=== PATIENT | female | born 1970 | race Hispanic/Latino ===

== ENCOUNTER → 2021-08-30 | Outpatient (CLI) | payer OTHER, MEDICAID | END | disposition home or self-care (01) | LOC: RAH 13:16 | PROVIDERS: ATTEND Internal Medicine Cardiovascular Disease | DX: R00.2 Palpitations (principal); R00.0 Tachycardia, unspecified | CPT/HCPCS: 93306 ==

== ENCOUNTER → 2022-05-10 | Outpatient (CLI) | payer OTHER, MEDICAID ==
[~2022-05-10] VITALS: Ht 154.9 cm; Wt 86.6 kg
[~2022-05-10] MED LIST: 0.9%NACL 1000ML 1,000 ML IV SCH
[2022-05-10 10:44] LABS: BASOPHILS % (AUTO) 0.8 % (0.0-5.0); EOSINOPHILS % (AUTO) 1.2 % (0.0-8.0); HEMATOCRIT 40.8 % (36-48); LYMPHOCYTES % (AUTO) 34.9 % (21.0-51.0); MEAN CORPUSCULAR HEMOGLOBIN 25.7 pg (27.0-33.0); MEAN CORPUSCULAR HGB CONC 32.4 g/dL (32.0-36.0); MEAN CORPUSCULAR VOLUME 79.4 fL (79-99); MONOCYTES % (AUTO) 6.5 % (3.0-13.0); NEUTROPHILS % (AUTO) 56.1 % (40.0-77.0); PLATELET COUNT (AUTO) 265 K/uL (130-400); RED BLOOD CELL COUNT(AUTO) 5.14 MIL/uL (4.00-5.50); RED CELL DISTRIBUTION WIDTH 14.9 % (11.0-15.5); WHITE BLOOD COUNT (AUTO) 6.5 K/uL (4.8-10.8)
[2022-05-10 10:53] LABS: CREATININE 0.9 mg/dL (0.5-1.5); POTASSIUM 4.3 mmol/L (3.5-5.1)
[2022-05-10 11:00] LABS: INR 0.93 (0.85-1.15); PROTHROMBIN TIME 10.2 SEC (9.6-11.6)
[2022-05-10 11:01] LABS: PARTIAL THROMBOPLASTIN TIME 28.3 SEC (26.3-35.5)
[2022-05-11 09:41] VITALS: BP 128/69
== END | disposition home or self-care (01) ==
LOC: DAH 10:00 → EDSTATUS 10:00
PROVIDERS: ATTEND Internal Medicine Cardiovascular Disease
DX: Z01.810 Encounter for preprocedural cardiovascular examination (principal); I47.1 Supraventricular tachycardia; Z79.01 Long term (current) use of anticoagulants
CPT/HCPCS: 36415; 71045; 80048; 84703; 85025; 85610; 85730; 93005

== ENCOUNTER 2022-06-05 05:48 | Inpatient (IN) | payer OTHER, MEDICAID ==
[2022-06-01 11:17] LABS: BASOPHILS % (AUTO) 0.9 % (0.0-5.0); EOSINOPHILS % (AUTO) 0.9 % (0.0-8.0); HEMATOCRIT 40.7 % (36-48); LYMPHOCYTES % (AUTO) 32.7 % (21.0-51.0); MEAN CORPUSCULAR HEMOGLOBIN 25.8 pg (27.0-33.0); MEAN CORPUSCULAR HGB CONC 32.7 g/dL (32.0-36.0); MONOCYTES % (AUTO) 4.2 % (3.0-13.0); NEUTROPHILS % (AUTO) 61.1 % (40.0-77.0); PLATELET COUNT (AUTO) 232 K/uL (130-400); RED BLOOD CELL COUNT(AUTO) 5.15 MIL/uL (4.00-5.50); RED CELL DISTRIBUTION WIDTH 14.7 % (11.0-15.5); WHITE BLOOD COUNT (AUTO) 5.7 K/uL (4.8-10.8)
[2022-06-01 11:26] LABS: CREATININE 0.7 mg/dL (0.5-1.5); POTASSIUM 3.7 mmol/L (3.5-5.1)
[2022-06-01 11:29] LABS: INR 0.95 (0.85-1.15); PROTHROMBIN TIME 10.4 SEC (9.6-11.6)
[2022-06-01 11:30] LABS: PARTIAL THROMBOPLASTIN TIME 29.1 SEC (26.3-35.5)
[2022-06-04 09:58] VITALS: BP 146/82
[~2022-06-05] VITALS: Ht 157.5 cm; Wt 88.5 kg
[2022-06-05] VITALS (24 sets, daily range): BP systolic 78–145; BP diastolic 47–83
[~2022-06-05 05:48] MED LIST changes: -0.9%NACL 1000ML 1,000 ML IV SCH; +ATOR10TA69 PO; +LOSA50TA64 PO; +PIND5 PO
[2022-06-05] MEDS ORDERED: LIDOCAINE HCL 1% MDV 50ML VIAL ONE (07:41)
[2022-06-05] MEDS ORDERED: MEPERIDINE-PF 25 MG/ML SYG ONE (07:41)
[2022-06-05] MEDS ORDERED: MIDAZOLAM HCL 1 MG/ML 2ML VIAL ONE ×3 (07:41→09:05)
[2022-06-05] MEDS ORDERED: HEPARIN 10,000 UNIT/10ML (1,000 UNIT/ML) VIAL ONE (07:54)
[2022-06-05] MEDS ORDERED: ISOPROTERENOL HCL 0.2 MG/ML AMP/VIAL/BAG ONE (07:58)
[2022-06-05] MEDS ORDERED: MEPERIDINE-PF 50 MG/ML SYG ONE (08:37)
[2022-06-05] MEDS ORDERED: ADENOSINE 90MG VIAL IV ONE (09:01)
[2022-06-05] MEDS ORDERED: ACETAMINOPHEN WITH CODEINE 1 TAB TAB PO PRN (11:00)
[2022-06-05] MEDS ORDERED: ACETAMINOPHEN 325 MG TAB PO PRN ×3 (11:00→14:00)
[2022-06-05 13:43] LABS: BASOPHILS % (AUTO) 0.4 % (0.0-5.0); EOSINOPHILS % (AUTO) 0.3 % (0.0-8.0); HEMATOCRIT 33.4 % (36-48); LYMPHOCYTES % (AUTO) 14.7 % (21.0-51.0); MEAN CORPUSCULAR HEMOGLOBIN 25.8 pg (27.0-33.0); MEAN CORPUSCULAR HGB CONC 32.9 g/dL (32.0-36.0); MEAN CORPUSCULAR VOLUME 78.2 fL (79-99); NEUTROPHILS % (AUTO) 79.2 % (40.0-77.0); PLATELET COUNT (AUTO) 245 K/uL (130-400); RED BLOOD CELL COUNT(AUTO) 4.27 MIL/uL (4.00-5.50); WHITE BLOOD COUNT (AUTO) 10.9 K/uL (4.8-10.8)
[2022-06-05] MEDS ORDERED: DiphenhydrAMINE HCL 50 MG/ML VIAL IV PRN (14:00)
[2022-06-05] MEDS ORDERED: GUAIFENESIN-DM 200/20 MG 10 ML PO PRN (14:00)
[2022-06-05] MEDS ORDERED: POTASSIUM CHLORIDE 10% ELIXIR 20 MEQ/15 ML UDCUP PO PRN (14:00)
[2022-06-05] MEDS ORDERED: LIDOCAINE HCL-MPF 1% 2ML VIAL IV PRN (14:00)
[2022-06-05] MEDS ORDERED: POTASSIUM CHLORIDE 20MEQ/100ML 100 ML IV PRN (14:00)
[2022-06-05] MEDS ORDERED: NITROGLYCERIN 0.4 MG SL TAB SL PRN (14:00)
[2022-06-05] MEDS ORDERED: HYDROCODONE/ACETAMINOPHEN 5/325 MG TAB PO PRN ×2 (14:00)
[2022-06-05] MEDS ORDERED: HYDROMORPHONE 1 MG INJ IV PRN (14:00)
[2022-06-05] MEDS ORDERED: MAG/ALUM/SIMETH 30 ML UDCUP PO PRN (14:00)
[2022-06-05] MEDS ORDERED: MAGNESIUM 2GM PREMIX 50ML 50 ML IV PRN (14:00)
[2022-06-05] MEDS: 0.9%NACL 1000ML 1,000 ML IV SCH (14:00)
[2022-06-05] MEDS ORDERED: LACTULOSE 20 GM/30 ML UDCUP PO PRN (14:00)
[2022-06-05] MEDS ORDERED: DIPHENHYDRAMINE HCL 25 MG CAPSULE PO PRN (14:00)
[2022-06-05] MEDS ORDERED: ONDANSETRON 4MG INJ IV PRN (14:00)
[2022-06-05] MEDS ORDERED: KETOROLAC 15MG/ML VIAL (15MG/ML) IV ONE (14:30)
[2022-06-05 18:47] LABS: BASOPHILS % (AUTO) 0.5 % (0.0-5.0); EOSINOPHILS % (AUTO) 0.1 % (0.0-8.0); HEMATOCRIT 32.7 % (36-48); LYMPHOCYTES % (AUTO) 22.1 % (21.0-51.0); MEAN CORPUSCULAR HEMOGLOBIN 25.7 pg (27.0-33.0); MEAN CORPUSCULAR HGB CONC 32.1 g/dL (32.0-36.0); MONOCYTES % (AUTO) 4.9 % (3.0-13.0); NEUTROPHILS % (AUTO) 72.2 % (40.0-77.0); PLATELET COUNT (AUTO) 232 K/uL (130-400); RED BLOOD CELL COUNT(AUTO) 4.09 MIL/uL (4.00-5.50); WHITE BLOOD COUNT (AUTO) 9.9 K/uL (4.8-10.8)
[2022-06-05] MEDS: ATORVASTATIN 10 MG TABLET PO SCH (20:33)
[2022-06-05] MEDS: FAMOTIDINE 20MG TAB PO SCH (20:34)
[2022-06-05] MEDS: KETOROLAC 15MG/ML VIAL (15MG/ML) IV PRN (20:34)
[2022-06-05] MEDS: FAMOTIDINE 20MG VIAL IV SCH (20:35)
[2022-06-05 22:50] LABS: HEMATOCRIT 28.5 % (36-48)
[2022-06-06 00:01] VITALS: BP 110/57
[2022-06-06 04:00] VITALS: BP 110/66
[2022-06-06 04:02] LABS: BASOPHILS % (AUTO) 0.6 % (0.0-5.0); EOSINOPHILS % (AUTO) 0.6 % (0.0-8.0); HEMATOCRIT 28.6 % (36-48); LYMPHOCYTES % (AUTO) 37.3 % (21.0-51.0); MEAN CORPUSCULAR HEMOGLOBIN 26.1 pg (27.0-33.0); MEAN CORPUSCULAR HGB CONC 32.5 g/dL (32.0-36.0); MEAN CORPUSCULAR VOLUME 80.3 fL (79-99); MONOCYTES % (AUTO) 6.3 % (3.0-13.0); NEUTROPHILS % (AUTO) 54.9 % (40.0-77.0); PLATELET COUNT (AUTO) 199 K/uL (130-400); RED BLOOD CELL COUNT(AUTO) 3.56 MIL/uL (4.00-5.50); RED CELL DISTRIBUTION WIDTH 15.1 % (11.0-15.5)
[2022-06-06 04:15] LABS: CREATININE 0.8 mg/dL (0.5-1.5); MAGNESIUM 2.2 mg/dL (1.80-2.40); PHOSPHORUS 4.6 mg/dL (2.5-4.9); POTASSIUM 3.6 mmol/L (3.5-5.1)
[2022-06-06] MEDS: 0.9%NACL 1000ML 1,000 ML IV SCH ×3 (05:08→20:48)
[2022-06-06] MEDS: KCL 20 MEQ ERTAB PO PRN ×2 (05:08→14:27)
[2022-06-06] MEDS: FAMOTIDINE 20MG TAB PO SCH ×2 (08:39→20:21)
[2022-06-06] MEDS: KETOROLAC 15MG/ML VIAL (15MG/ML) IV PRN ×2 (08:42→20:22)
[2022-06-06] MEDS: FAMOTIDINE 20MG VIAL IV SCH ×2 (08:45→20:22)
[2022-06-06] MEDS: PINDOLOL 5 MG TAB PO SCH ×2 (09:48→20:21)
[2022-06-06 12:00] VITALS: BP 118/55
[2022-06-06 13:30] LABS: BASOPHILS % (AUTO) 0.5 % (0.0-5.0); EOSINOPHILS % (AUTO) 0.6 % (0.0-8.0); LYMPHOCYTES % (AUTO) 36.9 % (21.0-51.0); MEAN CORPUSCULAR HGB CONC 32.1 g/dL (32.0-36.0); MONOCYTES % (AUTO) 5.4 % (3.0-13.0); NEUTROPHILS % (AUTO) 56.3 % (40.0-77.0); PLATELET COUNT (AUTO) 183 K/uL (130-400); RED BLOOD CELL COUNT(AUTO) 3.58 MIL/uL (4.00-5.50); RED CELL DISTRIBUTION WIDTH 14.9 % (11.0-15.5); WHITE BLOOD COUNT (AUTO) 6.5 K/uL (4.8-10.8)
[2022-06-06 16:00] VITALS: BP 104/59
[2022-06-06] MEDS: ATORVASTATIN 10 MG TABLET PO SCH (20:21)
[2022-06-06 20:25] VITALS: BP 140/66
[2022-06-06 23:54] VITALS: BP 120/63
[2022-06-07 03:35] LABS: BASOPHILS % (AUTO) 0.6 % (0.0-5.0); EOSINOPHILS % (AUTO) 1.1 % (0.0-8.0); HEMATOCRIT 27.4 % (36-48); LYMPHOCYTES % (AUTO) 41.2 % (21.0-51.0); MEAN CORPUSCULAR HEMOGLOBIN 25.8 pg (27.0-33.0); MEAN CORPUSCULAR HGB CONC 32.5 g/dL (32.0-36.0); MEAN CORPUSCULAR VOLUME 79.4 fL (79-99); MONOCYTES % (AUTO) 6.7 % (3.0-13.0); NEUTROPHILS % (AUTO) 50.1 % (40.0-77.0); PLATELET COUNT (AUTO) 185 K/uL (130-400); RED BLOOD CELL COUNT(AUTO) 3.45 MIL/uL (4.00-5.50); RED CELL DISTRIBUTION WIDTH 15.1 % (11.0-15.5); WHITE BLOOD COUNT (AUTO) 6.4 K/uL (4.8-10.8)
[2022-06-07 03:39] LABS: CREATININE 0.8 mg/dL (0.5-1.5); POTASSIUM 3.6 mmol/L (3.5-5.1)
[2022-06-07] MEDS: 0.9%NACL 1000ML 1,000 ML IV SCH ×3 (04:30→19:54)
[2022-06-07] MEDS: KCL 20 MEQ ERTAB PO PRN ×2 (04:49→17:43)
[2022-06-07] MEDS: KETOROLAC 15MG/ML VIAL (15MG/ML) IV PRN ×2 (04:49→20:39)
[2022-06-07 04:58] VITALS: BP 133/65
[2022-06-07 08:08] VITALS: BP 138/68
[2022-06-07] MEDS: FAMOTIDINE 20MG VIAL IV SCH ×2 (09:00→20:22)
[2022-06-07] MEDS: FAMOTIDINE 20MG TAB PO SCH ×2 (09:15→20:20)
[2022-06-07] MEDS: PINDOLOL 5 MG TAB PO SCH ×2 (09:15→20:21)
[2022-06-07] MEDS ORDERED: IOHEXOL-350 50ML VIAL IV ONE (10:53)
[2022-06-07 12:29] VITALS: BP 137/90
[2022-06-07 16:51] VITALS: BP 117/65
[2022-06-07 20:09] VITALS: BP 123/71
[2022-06-07] MEDS: ATORVASTATIN 10 MG TABLET PO SCH (20:20)
[2022-06-08] VITALS (7 sets, daily range): BP systolic 105–127; BP diastolic 60–71
[2022-06-08] MEDS: 0.9%NACL 1000ML 1,000 ML IV SCH ×3 (03:33→19:00)
[2022-06-08 03:57] LABS: BASOPHILS % (AUTO) 0.6 % (0.0-5.0); EOSINOPHILS % (AUTO) 1.8 % (0.0-8.0); HEMATOCRIT 29.7 % (36-48); LYMPHOCYTES % (AUTO) 39.1 % (21.0-51.0); MEAN CORPUSCULAR HEMOGLOBIN 25.3 pg (27.0-33.0); MONOCYTES % (AUTO) 7.2 % (3.0-13.0); PLATELET COUNT (AUTO) 199 K/uL (130-400); RED BLOOD CELL COUNT(AUTO) 3.76 MIL/uL (4.00-5.50); RED CELL DISTRIBUTION WIDTH 15.2 % (11.0-15.5); WHITE BLOOD COUNT (AUTO) 7.2 K/uL (4.8-10.8)
[2022-06-08 04:08] LABS: CREATININE 0.8 mg/dL (0.5-1.5)
[2022-06-08] MEDS: FAMOTIDINE 20MG VIAL IV SCH ×2 (09:00→21:00)
[2022-06-08] MEDS: PINDOLOL 5 MG TAB PO SCH ×2 (10:04→21:03)
[2022-06-08] MEDS: FAMOTIDINE 20MG TAB PO SCH ×2 (10:04→21:03)
[2022-06-08] MEDS: KETOROLAC 15MG/ML VIAL (15MG/ML) IV PRN ×2 (10:05→21:03)
[2022-06-08] MEDS ORDERED: LORAZEPAM 2 MG/ML 1 ML VIAL IM ONE (14:00)
[2022-06-08] MEDS: ATORVASTATIN 10 MG TABLET PO SCH (21:03)
[2022-06-09] MEDS: 0.9%NACL 1000ML 1,000 ML IV SCH ×2 (02:42→10:24)
[2022-06-09 03:58] VITALS: BP 115/59
[2022-06-09 07:15] VITALS: BP_SYST 115; BP_SYST 136; BP_DIAS 51; BP_DIAS 69
[2022-06-09] MEDS: KETOROLAC 15MG/ML VIAL (15MG/ML) IV PRN (08:17)
[2022-06-09] MEDS: FAMOTIDINE 20MG TAB PO SCH (08:17)
[2022-06-09] MEDS: FAMOTIDINE 20MG VIAL IV SCH (09:00)
[2022-06-09] MEDS: PINDOLOL 5 MG TAB PO SCH (10:36)
[2022-06-09 11:09] VITALS: BP 106/68
[2022-06-09] MEDS ORDERED: HYDR-4060 PO (14:50)
[2022-06-09 16:15] VITALS: BP 122/78
== END 2022-06-09 17:30 | disposition home or self-care (01) | DRG 919 ==
LOC: DAH 05:48 → INTOOBSV 05:49 → DAH 05:49 → OBSVTOIN 05:49 → DAHIP 05:49 → 2AH 16:59
PROVIDERS: ADMIT Internal Medicine; ATTEND Internal Medicine
DX: K91.841 Postprocedural hemorrhage of a digestive system organ or structure following other procedure (principal); K66.1 Hemoperitoneum; R57.8 Other shock; I47.1 Supraventricular tachycardia; K56.7 Ileus, unspecified; I47.20 Ventricular tachycardia, unspecified; D64.9 Anemia, unspecified; G90.A Postural orthostatic tachycardia syndrome [POTS]; H93.13 Tinnitus, bilateral; I10 Essential (primary) hypertension; Y84.0 Cardiac catheterization as the cause of abnormal reaction of the patient, or of later complication, without mention of misadventure at the time of the procedure; F17.200 Nicotine dependence, unspecified, uncomplicated; Y71.3 Surgical instruments, materials and cardiovascular devices (including sutures) associated with adverse incidents; Z79.899 Other long term (current) drug therapy; Z90.710 Acquired absence of both cervix and uterus
CPT/HCPCS: 36415; 70551; 72192; 72193; 76705; 80048; 83735; 84100; 85014; 85018; 85025; 85610; 85730; 86850; 86870; 86900; 86901; 86922; 93005; 93620; 93621; 93623; 96360; 96361; 99156; 99157; A4606; C1730; C1894; G0378; J0153; J1644; J1885; J2175; J2250; J2405; J3490; J7030; Q9967

== ENCOUNTER 2022-06-20 14:44 | Observation (INO) | payer OTHER, MEDICAID ==
[~2022-06-20] VITALS: Ht 154.9 cm; Wt 87.6 kg
[~2022-06-20 14:44] MED LIST changes: +HYDR-4060 PO
[2022-06-20 15:47] LABS: BASOPHILS % (AUTO) 0.7 % (0.0-5.0); EOSINOPHILS % (AUTO) 0.9 % (0.0-8.0); HEMATOCRIT 33.6 % (36-48); LYMPHOCYTES % (AUTO) 24.6 % (21.0-51.0); MEAN CORPUSCULAR HEMOGLOBIN 25.5 pg (27.0-33.0); MEAN CORPUSCULAR HGB CONC 32.1 g/dL (32.0-36.0); MEAN CORPUSCULAR VOLUME 79.4 fL (79-99); MONOCYTES % (AUTO) 6.7 % (3.0-13.0); PLATELET COUNT (AUTO) 398 K/uL (130-400); RED BLOOD CELL COUNT(AUTO) 4.23 MIL/uL (4.00-5.50); RED CELL DISTRIBUTION WIDTH 15.3 % (11.0-15.5)
[2022-06-20 15:56] LABS: CREATININE 0.9 mg/dL (0.5-1.5); POTASSIUM 3.2 mmol/L (3.5-5.1)
[2022-06-20 16:01] LABS: ALBUMIN 3.7 g/dL (3.5-5.0); TOTAL PROTEIN, SERUM 8.1 g/dL (6.0-8.3)
[2022-06-20] MEDS ORDERED: IOHEXOL-350 50ML VIAL IV ONE (16:36)
[2022-06-20 18:07] LABS: PROTHROMBIN TIME 10.9 SEC (9.6-11.6)
[2022-06-20] MEDS ORDERED: LIDOCAINE HCL-MPF 1% 2ML VIAL IV PRN (19:00)
[2022-06-20] MEDS ORDERED: POTASSIUM CHLORIDE 10% ELIXIR 20 MEQ/15 ML UDCUP PO PRN (19:00)
[2022-06-20] MEDS ORDERED: ACETAMINOPHEN 325 MG TAB PO PRN ×2 (19:00)
[2022-06-20] MEDS ORDERED: KCL 20 MEQ ERTAB PO PRN (19:00)
[2022-06-20] MEDS ORDERED: ONDANSETRON 4MG INJ IV PRN (19:00)
[2022-06-20] MEDS ORDERED: NITROGLYCERIN 0.4 MG SL TAB SL PRN (19:00)
[2022-06-20] MEDS ORDERED: POTASSIUM CHLORIDE 20MEQ/100ML 100 ML IV PRN (19:00)
[2022-06-20] MEDS ORDERED: MAGNESIUM 2GM PREMIX 50ML 50 ML IV PRN (19:00)
[2022-06-20 21:01] LABS: HEMATOCRIT 31.8 % (36-48)
[2022-06-20] MEDS: FAMOTIDINE 20MG TAB PO SCH (21:22)
[2022-06-20] MEDS ORDERED: HYDROMORPHONE 0.5 MG SYG (0.5MG/0.5ML) IVP PRN (21:30)
[2022-06-20 21:48] VITALS: BP 136/79
[2022-06-21] VITALS (7 sets, daily range): BP systolic 104–132; BP diastolic 63–76
[2022-06-21 05:24] LABS: BASOPHILS % (AUTO) 0.8 % (0.0-5.0); EOSINOPHILS % (AUTO) 1.4 % (0.0-8.0); HEMATOCRIT 31.5 % (36-48); LYMPHOCYTES % (AUTO) 33.6 % (21.0-51.0); MEAN CORPUSCULAR HEMOGLOBIN 25.2 pg (27.0-33.0); MEAN CORPUSCULAR HGB CONC 31.4 g/dL (32.0-36.0); MEAN CORPUSCULAR VOLUME 80.2 fL (79-99); MONOCYTES % (AUTO) 8.4 % (3.0-13.0); NEUTROPHILS % (AUTO) 55.6 % (40.0-77.0); PLATELET COUNT (AUTO) 365 K/uL (130-400); RED BLOOD CELL COUNT(AUTO) 3.93 MIL/uL (4.00-5.50); RED CELL DISTRIBUTION WIDTH 15.3 % (11.0-15.5); WHITE BLOOD COUNT (AUTO) 6.3 K/uL (4.8-10.8)
[2022-06-21 05:45] LABS: ALBUMIN 3.1 g/dL (3.5-5.0); CREATININE 0.8 mg/dL (0.5-1.5); MAGNESIUM 2.2 mg/dL (1.80-2.40); TOTAL PROTEIN, SERUM 7.2 g/dL (6.0-8.3)
[2022-06-21 08:16] LABS: APPEARANCE,URINE CLEAR (CLEAR); BILIRUBIN,URINE NEGATIVE (NEGATIVE); COLOR,URINE YELLOW (YELLOW); GLUCOSE, URINE (UA) NEGATIVE (NEGATIVE); KETONES,URINE NEGATIVE (NEGATIVE); LEUKOCYTE ESTERASE ,URINE NEGATIVE Leu/uL (NEGATIVE); NITRATE,URINE NEGATIVE (NEGATIVE); PROTEIN,URINE NEGATIVE (NEGATIVE)
[2022-06-21 08:22] LABS: MUCUS,URINE FEW LPF (None Seen); RBC,URINE 0-1 /HPF (0-1); SQUAMOUS EPITHELIAL CELL,UR RARE /HPF (0-2)
[2022-06-21] MEDS: FAMOTIDINE 20MG TAB PO SCH ×2 (08:49→19:43)
[2022-06-21] MEDS ORDERED: ATORVASTATIN 10 MG TABLET PO SCH (21:00)
[2022-06-22 04:00] VITALS: BP 112/74
[2022-06-22 05:28] LABS: BASOPHILS % (AUTO) 0.7 % (0.0-5.0); EOSINOPHILS % (AUTO) 1.6 % (0.0-8.0); LYMPHOCYTES % (AUTO) 32.2 % (21.0-51.0); MEAN CORPUSCULAR HEMOGLOBIN 25.6 pg (27.0-33.0); MEAN CORPUSCULAR HGB CONC 31.9 g/dL (32.0-36.0); MEAN CORPUSCULAR VOLUME 80.4 fL (79-99); MONOCYTES % (AUTO) 6.4 % (3.0-13.0); NEUTROPHILS % (AUTO) 58.9 % (40.0-77.0); PLATELET COUNT (AUTO) 343 K/uL (130-400); RED BLOOD CELL COUNT(AUTO) 3.98 MIL/uL (4.00-5.50); RED CELL DISTRIBUTION WIDTH 15.3 % (11.0-15.5); WHITE BLOOD COUNT (AUTO) 6.1 K/uL (4.8-10.8)
[2022-06-22 05:42] LABS: CREATININE 0.7 mg/dL (0.5-1.5); MAGNESIUM 2.4 mg/dL (1.80-2.40); PHOSPHORUS 4.7 mg/dL (2.5-4.9); POTASSIUM 3.5 mmol/L (3.5-5.1)
[2022-06-22 08:00] VITALS: BP 103/60
[2022-06-22] MEDS: FAMOTIDINE 20MG TAB PO SCH (08:35)
[2022-06-22 11:13] VITALS: BP 114/60
== END 2022-06-22 12:15 | disposition home or self-care (01) ==
LOC: EDH 14:44 → EDHIP 18:49 → INTOOBSV 18:49 → 3BH 21:20
PROVIDERS: ADMIT Internal Medicine; ATTEND Internal Medicine
DX: K66.1 Hemoperitoneum (principal); Z20.822 Contact with and (suspected) exposure to COVID-19; I10 Essential (primary) hypertension; D64.9 Anemia, unspecified; E87.6 Hypokalemia; Z90.710 Acquired absence of both cervix and uterus; Z98.891 History of uterine scar from previous surgery; Z79.899 Other long term (current) drug therapy; Z98.890 Other specified postprocedural states
CPT/HCPCS: 99285; 83735 ×3; 80053 ×2; 83690; 85025 ×3; 85610; 85014; 85018; 36415 ×3; 87635; 71045; 74177; 93005; 81001; 84100; 80048; G0378 ×30; Q9967